=== PATIENT | male | born 1955 | race Two or more races ===

== ENCOUNTER → 2020-05-18 12:00 | Inpatient (IN) | payer OTHER ==
[2020-05-16] VITALS (16 sets, daily range): BP systolic 76–147; BP diastolic 43–69
--- NOTE | 2020-05-16 06:41 | Anethesia Preoperative Eval ---
Anesthesia Pre-op PMH/ROS General Date of Evaluation: May 16, 2020 Anesthesiologist: Bud ASA Score: ASA 3 Mallampati Score Class I : Soft palate, uvula, fauces, pillars visible Class II: Soft palate, uvula, fauces visible Class III: Soft palate, base of uvula visible Class IV: Only hard plate visible Mallampati Classification: Class IV Surgeon: Stanley Diagnosis: Right knee OA Surgical Procedure: Right TKR Anesthesia History: none Family History: no anesthesia problems Allergies: Coded Allergies: No Known Allergies (Unverified , 03/10/19) Medications: see eMAR Patient NPO?: Yes NPO Date: May 16, 2020 NPO Time: 00:00 Past Medical History Cardiovascular: Reports: HTN; Denies: CAD, [place], valve dz, arrhythmia, other Pulmonary: Reports: KAREEM - uses CPAP; Denies: asthma, COPD, other Gastrointestinal/Genitourinary: Reports: other - BPH; Denies: GERD, CRI, ESRD Neurologic/Psychiatric: Reports: depression/anxiety; Denies: dementia, CVA, TIA, other Endocrine: Denies: DM, hypothyroidism, steroids, other HEENT: Denies: cataract (L), cataract (R), glaucoma, [place] (L), [place] (R), other Hematology/Immune: Denies: anemia, DVT, bleeding disorder, other Musculoskeletal/Integumentary: Reports: OA; Denies: RA, DJD, DDD, edema, other Other: obesity PSxH Narrative: Left eye vitrtectomy, margo, appy, ex-lap, bilateral knee arthroscpies Anesthesia Pre-op Phys. Exam Physician Exam Last Vital Signs Date Time Temp Pulse Resp B/P (MAP) Pulse Ox O2 Delivery O2 Flow Rate FiO2 05/16/20 06:12 97.5 68 20 140/61 (87) 98 05/16/20 06:11 Room Air Constitutional: NAD Cardiovascular: RRR Respiratory: CTA Airway Exam Mallampati Score: Class III MO: limited Neck: Short, obese TMD: <FB ROM: limited Teeth: intact Anesthesia Pre-op A/P Labs see chart Studies Pre-op Studies: EKG - SB, CXR - No evidence of acute disease Risk Assessment & Plan Assessment: ASA III Plan: Right adductor nerve block, SAB, GA Status Change Before Surgery: No Pre-Antibiotics Drug: Ancef 2g Given Within 1 Hr of Incision: Yes Carrie Farrell MD May 16, 2020 06:41
--- NOTE | 2020-05-16 07:05 | Pre-Procedure Note/Attestation ---
Pre-Procedure Note/Attestation Complete Prior to Procedure Planned Procedure: right Procedure Narrative: Rt total knee arthroplasty Indications for Procedure Pre-Operative Diagnosis: rt knee arthritis Attestation I attest that I discussed the nature of the procedure; its benefits; risks and complications; and alternatives (and the risks and benefits of such alternatives ), prior to the procedure, with the patient (or the patient's legal claims service representative). I attest that, if there was a reasonable possibility of needing a blood transfusion, the patient (or the patient's legal claims service representative) was given the [facility] standardized written summary, pursuant to the [place] Blood Safety Act ([place] Health and Safety Code # 1645, as amended). I attest that I re-evaluated the patient just prior to the surgery and that there has been no change in the patient's H&P, except as documented below: NONE Slick Angel MD May 16, 2020 07:05
--- NOTE | 2020-05-16 09:42 | Brief Operative Note ---
Immediate Post Operative Note Operative Note Chief Complaint: rt knee pain Pre-op Diagnosis: rt knee arthritis Procedure: rt tka Post-op Diagnosis: same as pre-op Findings: consistent w/pre-op dx studies Surgeon: md dimitri English Language Arts Teacher: bonnie tang Anesthesiologist: md cris Anesthesia: general Specimen: yes Complications: none Condition: stable Fluids: ns Estimated Blood Loss: minimal Drains: none Implant(s) used?: Yes - Slick Salgado MD May 16, 2020 09:42
--- NOTE | 2020-05-16 09:59 | Immediate Post-Op Evaluation ---
Immediate Post-Op Evalulation Immediate Post-Op Evalulation Procedure: Right TKR Date of Evaluation: May 16, 2020 Time of Evaluation: 10:01 IV Fluids: 1.6L Blood Products: 0 Estimated Blood Loss: 250 Urinary Output: 50 Blood Pressure Systolic: 86 Blood Pressure Diastolic: 43 Pulse Rate: 70 Respiratory Rate: 16 O2 Sat by Pulse Oximetry: 100 Temperature (Fahrenheit): 97.4 Pain Score (1-10): 0 Nausea: No Vomiting: No Complications 0 Patient Status: awake, reacts, patent, none Hydration Status: adequate Drug: Ancef 2g Given Within 1 Hr of Incision: Yes Carrie Farrell MD May 16, 2020 09:59
--- NOTE | 2020-05-16 10:00 | 48 Hour Post Anesthesia Eval ---
Post Anesthesia Evaluation Procedure: Right TKR Date of Evaluation: May 16, 2020 Airway: patent Nausea: No Vomiting: No Hydration Status: adequate Cardiopulmonary Status: at baseline Mental Status/LOC: patient returned to baseline Post-Anesthesia Complications: 0 Follow-up care needed: N/A - further care as per primary team Carrie Farrell MD May 16, 2020 10:00
[2020-05-16] MEDS: Docusate 100mg cap ORAL SCH ×2 (13:15→17:28)
[2020-05-16] MEDS: D5 1/2NS w/KCl 20mEq 1,000 ML IV SCH (13:17)
[2020-05-16] MEDS: HYDROcodone/Acetamin 5/325 tab ORAL PRN ×2 (13:17→17:30)
--- NOTE | 2020-05-16 14:21 | Diagnostic Imaging Report ---
Indications: Postoperative Technique: Two views of the right knee Comparison: None Findings: Two postoperative views of the right knee demonstrate total knee arthroplasty, good anatomic alignment of the prosthesis. . There is postsurgical soft tissue air. Impression: Postoperative right knee, no unusual features.
[2020-05-16] MEDS: ceFAZolin sod 1 GM in D5W 55 ML IV SCH ×2 (14:26→22:05)
--- NOTE | 2020-05-16 14:45 | Operative Note - Dictated ---
DATE OF OPERATION: 05/16/2020 PREOPERATIVE DIAGNOSIS: Right knee end-stage arthritis. POSTOPERATIVE DIAGNOSIS: Right knee end-stage arthritis. PROCEDURE: Right total knee arthroplasty using Venus Triathlon System, size 5 femur, size 6 tibial plate, a 33 mm all-poly patella, and a 9 mm ultra cross-linked polyethylene tibial insert. SURGEON: Slick Angel MD. EXPERIMENTAL ROCKETSLED MECHANIC: Jenny Salmeron PA-C. ANESTHESIOLOGIST: Carrie Farrell MD. ANESTHESIA: General LMA anesthesia combined with regional block for postoperative pain management. ESTIMATED BLOOD LOSS: Less than 20 mL. COMPLICATIONS: None. BRIEF HISTORY: The patient is a pleasant 64-year-old gentleman, who has had end-stage arthritis. He has had varus deformity and loss of full extension by 5 degrees. After full discussion of risks and benefits of the surgery and after failure of nonoperative treatment, he opted for surgical treatment as described above. Risks of infection, bleeding, neurovascular complication, possibility of continued pain, possibility of loss of motion, possibility of infection, required antibiotics as well as resection arthroplasty, possibility of DVT, PEs and loss of motion and continued pain and other complications that may arise was discussed and understood and agreed. OPERATIVE PROCEDURE: The patient was brought to the operating room table and was placed supine. All pressure points were well padded. General LMA anesthesia was induced and regional block was performed. The right leg was prepped and draped in usual sterile fashion. Preop antibiotics were given and a time-out was performed. The right leg was then exsanguinated. Tourniquet was inflated to 275 mmHg. Standard anterior incision to the knee was undertaken and incision was taken through the subcutaneous tissue. Medial parapatellar arthrotomy was performed. The deep fibers of the MCL were released using osteotome. The patella was then everted and the knee was flexed. The fat pad was resected. ACL and PCL were resected. The intramedullary access into the femur was then obtained using a drill and a distal femoral cut in 5 degrees of valgus was applied. A 5-degree valgus distal femoral cut was performed without any complication. At this point, care was given to the measurements. The femur measured size 5. The cutting guide was placed in about 3 degrees external rotation and anterior, posterior, and chamfer cuts were performed without any complications. At this point, sizing was performed and size 5 femur appeared to fit well. There was no notching. The femur was lateralized slightly and peg holes were drilled. Care was then given to the tibia. Appropriate retractors were placed posteriorly, medially and laterally. The menisci were removed. The anterior tibial crest was marked to recreate anatomical axis. An extramedullary guide was placed. A posterior slope was recreated. Using a guide and a stylet, 9 mm was taken off the least involved side, which was the lateral side. The anatomical axis was recreated and cut was performed without any complications. Once this was performed, the flexion-extension gap was checked and appeared to be excellent and symmetrical. At this point, trialing of the tibial components were performed and size 6 appeared to be the right size was placed in slight external rotation and pinned and drilled and just the short stem was then punched. Once this was completed, the tibial trial and femoral trial along with a 9 mm trial poly insert were inserted. There was full extension, full flexion, excellent stability at 0, 30 degree, 45 degrees, and 90 degrees of flexion. At this point, care was given to the patella. The patella was everted. The thickness of patella was checked and appeared to be 24 mm. At this point, a freehand patella cut was performed and 30 mm patella was remaining. At this point, sizing was performed and 33 mm patella appeared to be the right size. This was translated slightly medially and the peg holes were drilled without any complications. At this point, trialing of the patella was performed along with trialing of the femur, tibia, and tibial insert and there was excellent range of motion, stability and patellofemoral tracking. At this point, all trial components were removed and wounds were thoroughly irrigated using copious amount of fluid. Simpulse irrigation was used. Cement was mixed and the bone was dried and the tibial component, femoral component, and patella components were all cemented in under compression without any complication. All excess cement was removed. Once this was completed, trialing with the tibial insert was performed and size 9 mm trial appeared to be the right size. Therefore, actual 9 mm ultra cross-linked poly insert was then locked in without any complication after and drying the knee and the tibial plate. Once this was completed, again the range of motion, patellofemoral tracking was checked and stability was checked and appeared to be excellent as described previously. The tourniquet was deflated. There was minimal bleeding that was coagulated. The extensor mechanism was closed using #1 Vicryl suture. Subcutaneous tissue was closed using 2-0 Vicryl suture. Skin was closed using 3-0 Monocryl suture. Sterile dressing was applied. All lap counts and instrument counts were correct. Slick Angel M.D. DR: JAVIER JOB#: [id number] CC: BARAK
[2020-05-16] MEDS: oxyCONTIN 10mg tab ORAL SCH (20:15)
--- NOTE | 2020-05-16 20:41 | General Progress Note ---
Assessment/Plan Assessment/Plan: sp right knee replacement htn post op care pain control restart olmesartan hctz PT per ortho dvt and ulcer prophylaxis check labs in am Subjective Allergies: Coded Allergies: No Known Allergies (Unverified , 03/10/19) Subjective co post op pain no chest pain or sob Objective Last 24 Hour Vital Signs Date Time Temp Pulse Resp B/P (MAP) Pulse Ox O2 Delivery O2 Flow Rate FiO2 05/16/20 16:00 97.4 83 18 123/62 (82) 92 05/16/20 14:15 97.7 81 18 124/64 (84) 95 05/16/20 13:15 97.5 86 20 129/66 (87) 94 05/16/20 12:15 97.8 75 18 111/59 (76) 92 05/16/20 11:45 97.5 80 20 110/59 (76) 92 05/16/20 11:15 97.6 73 18 102/61 (75) 92 05/16/20 11:05 97.9 75 22 113/58 100 Nasal Cannula 3 05/16/20 10:55 70 23 114/55 100 Nasal Cannula 3 05/16/20 10:40 73 20 111/53 100 Nasal Cannula 3 05/16/20 10:25 69 23 97/48 100 Simple Mask 6 05/16/20 10:15 71 24 98/48 100 Simple Mask 6 05/16/20 10:05 65 21 85/44 100 Simple Mask 6 05/16/20 10:00 67 23 87/45 100 Simple Mask 6 05/16/20 09:59 70 16 100 05/16/20 09:56 97.4 70 23 76/43 100 Simple Mask 6 05/16/20 06:12 97.5 68 20 140/61 (87) 98 05/16/20 06:11 Room Air Intake and Output 05/15/20 05/16/20 19:00 07:00 # Voids 1 Height (Feet): 5 Height (Inches): 7.00 Weight (Pounds): 240 General Appearance: WD/WN, no apparent distress Neck: supple Cardiovascular: normal rate Respiratory/Chest: lungs clear Abdomen: soft Edema: no edema noted Arm (L), no edema noted Arm (R), no edema noted Leg (L), no edema noted Leg (R), no edema noted Pedal (L), no edema noted Pedal (R), no edema noted Generalized Objective right nee dressing clean neurovascularintact Geoff Martinez MD May 16, 2020 20:41
[2020-05-17] VITALS: BP 120/57
[2020-05-17] MEDS: HYDROcodone/Acetamin 5/325 tab ORAL PRN ×2 (01:14→05:28)
[2020-05-17] MEDS: D5 1/2NS w/KCl 20mEq 1,000 ML IV SCH ×3 (01:50→20:19)
[2020-05-17 04:00] VITALS: BP 119/55
[2020-05-17 06:08] LABS: BASOPHILS % (AUTO) 0.4 % (0.0-2.0); HEMATOCRIT 35.5 % (42.0-52.0); HEMOGLOBIN 11.9 G/DL (14.2-18.0); LYMPHOCYTES % (AUTO) 6.3 % (20.0-45.0); MEAN CORPUSCULAR VOLUME 90 FL (80-99); MONOCYTES % (AUTO) 8.5 % (1.0-10.0); NEUTROPHILS % (AUTO) 84.8 % (45.0-75.0); PLATELET COUNT 185 K/UL (150-450); RED BLOOD COUNT 3.95 M/UL (4.70-6.10); RED CELL DISTRIBUTION WIDTH 11.9 % (11.6-14.8); WHITE BLOOD COUNT 11.8 K/UL (4.8-10.8)
[2020-05-17 06:33] LABS: ALANINE AMINOTRANSFERASE 30 U/L (12-78); ALBUMIN 3.5 G/DL (3.4-5.0); ALBUMIN/GLOBULIN RATIO 0.9 (1.0-2.7); ALKALINE PHOSPHATASE 39 U/L (46-116); ANION GAP 8 mmol/L (5-15); ASPARTATE AMINO TRANSFERASE 16 U/L (15-37); BILIRUBIN,TOTAL 0.5 MG/DL (0.2-1.0); BLOOD UREA NITROGEN 25 mg/dL (7-18); CALCIUM 8.5 MG/DL (8.5-10.1); CARBON DIOXIDE 29 MMOL/L (21-32); CHLORIDE 106 MMOL/L (98-107); CREATININE 1.5 MG/DL (0.55-1.30); POTASSIUM 4.8 MMOL/L (3.5-5.1); SODIUM 143 MMOL/L (136-145)
--- NOTE | 2020-05-17 07:59 | Orthopedic Progress Note ---
Orthopedic - Progress Note Subjective Symptoms: c/o post-op knee pain Objective Last 24 Hour Vital Signs Date Time Temp Pulse Resp B/P (MAP) Pulse Ox O2 Delivery O2 Flow Rate FiO2 05/17/20 04:00 97.5 66 17 119/55 (76) 93 05/17/20 00:00 97.7 63 14 120/57 (78) 93 05/16/20 21:00 Room Air 05/16/20 20:00 97.7 74 15 147/69 (95) 92 05/16/20 16:00 97.4 83 18 123/62 (82) 92 05/16/20 14:15 97.7 81 18 124/64 (84) 95 05/16/20 13:15 97.5 86 20 129/66 (87) 94 05/16/20 12:15 97.8 75 18 111/59 (76) 92 05/16/20 11:45 97.5 80 20 110/59 (76) 92 05/16/20 11:15 97.6 73 18 102/61 (75) 92 05/16/20 11:05 97.9 75 22 113/58 100 Nasal Cannula 3 05/16/20 10:55 70 23 114/55 100 Nasal Cannula 3 05/16/20 10:40 73 20 111/53 100 Nasal Cannula 3 05/16/20 10:25 69 23 97/48 100 Simple Mask 6 05/16/20 10:15 71 24 98/48 100 Simple Mask 6 05/16/20 10:05 65 21 85/44 100 Simple Mask 6 05/16/20 10:00 67 23 87/45 100 Simple Mask 6 05/16/20 09:59 70 16 100 05/16/20 09:56 97.4 70 23 76/43 100 Simple Mask 6 Laboratory Tests Test 05/17/20 04:40 White Blood Count 11.8 K/UL (4.8-10.8) H Red Blood Count 3.95 M/UL (4.70-6.10) L Hemoglobin 11.9 G/DL (14.2-18.0) L Hematocrit 35.5 % (42.0-52.0) L Mean Corpuscular Volume 90 FL (80-99) Mean Corpuscular Hemoglobin 30.1 PG (27.0-31.0) Mean Corpuscular Hemoglobin Concent 33.5 G/DL (32.0-36.0) Red Cell Distribution Width 11.9 % (11.6-14.8) Platelet Count 185 K/UL (150-450) Mean Platelet Volume 6.3 FL (6.5-10.1) L Neutrophils (%) (Auto) 84.8 % (45.0-75.0) H Lymphocytes (%) (Auto) 6.3 % (20.0-45.0) L Monocytes (%) (Auto) 8.5 % (1.0-10.0) Eosinophils (%) (Auto) 0.0 % (0.0-3.0) Basophils (%) (Auto) 0.4 % (0.0-2.0) Sodium Level 143 MMOL/L (136-145) Potassium Level 4.8 MMOL/L (3.5-5.1) Chloride Level 106 MMOL/L (98-107) Carbon Dioxide Level 29 MMOL/L (21-32) Anion Gap 8 mmol/L (5-15) Blood Urea Nitrogen 25 mg/dL (7-18) H Creatinine 1.5 MG/DL (0.55-1.30) H Estimat Glomerular Filtration Rate 47.0 mL/min (>60) Glucose Level 148 MG/DL (74-106) H Calcium Level 8.5 MG/DL (8.5-10.1) Total Bilirubin 0.5 MG/DL (0.2-1.0) Aspartate Amino Transf (AST/SGOT) 16 U/L (15-37) Alanine Aminotransferase (ALT/SGPT) 30 U/L (12-78) Alkaline Phosphatase 39 U/L (46-116) L Total Protein 7.2 G/DL (6.4-8.2) Albumin 3.5 G/DL (3.4-5.0) Globulin 3.7 g/dL Albumin/Globulin Ratio 0.9 (1.0-2.7) L Intake and Output 05/16/20 05/17/20 19:00 07:00 Intake Total 2300 ml 1225 ml Output Total 250 ml 550 ml Balance 2050 ml 675 ml Intake Oral 300 ml 400 ml IV Total 2000 ml 825 ml Output Urine Total 50 ml 550 ml Estimated Blood Loss 200 ml # Voids 2 Laboratory Tests Test 9/2/20 04:40 White Blood Count 11.8 K/UL (4.8-10.8) H Red Blood Count 3.95 M/UL (4.70-6.10) L Hemoglobin 11.9 G/DL (14.2-18.0) L Hematocrit 35.5 % (42.0-52.0) L Mean Corpuscular Volume 90 FL (80-99) Mean Corpuscular Hemoglobin 30.1 PG (27.0-31.0) Mean Corpuscular Hemoglobin Concent 33.5 G/DL (32.0-36.0) Red Cell Distribution Width 11.9 % (11.6-14.8) Platelet Count 185 K/UL (150-450) Mean Platelet Volume 6.3 FL (6.5-10.1) L Neutrophils (%) (Auto) 84.8 % (45.0-75.0) H Lymphocytes (%) (Auto) 6.3 % (20.0-45.0) L Monocytes (%) (Auto) 8.5 % (1.0-10.0) Eosinophils (%) (Auto) 0.0 % (0.0-3.0) Basophils (%) (Auto) 0.4 % (0.0-2.0) Sodium Level 143 MMOL/L (136-145) Potassium Level 4.8 MMOL/L (3.5-5.1) Chloride Level 106 MMOL/L (98-107) Carbon Dioxide Level 29 MMOL/L (21-32) Anion Gap 8 mmol/L (5-15) Blood Urea Nitrogen 25 mg/dL (7-18) H Creatinine 1.5 MG/DL (0.55-1.30) H Estimat Glomerular Filtration Rate 47.0 mL/min (>60) Glucose Level 148 MG/DL (74-106) H Calcium Level 8.5 MG/DL (8.5-10.1) Total Bilirubin 0.5 MG/DL (0.2-1.0) Aspartate Amino Transf (AST/SGOT) 16 U/L (15-37) Alanine Aminotransferase (ALT/SGPT) 30 U/L (12-78) Alkaline Phosphatase 39 U/L (46-116) L Total Protein 7.2 G/DL (6.4-8.2) Albumin 3.5 G/DL (3.4-5.0) Globulin 3.7 g/dL Albumin/Globulin Ratio 0.9 (1.0-2.7) L Wound: clean, dry, intact Drains: none Neuro Status: normal Vascular Status: normal Additional Comments Xray excellent Assessment Post-op Diagnosis POD 1 Procedure Performed Rt TKA Plan Plan: PT, pain management, discharge plan - likely home with services tomorrow Jenny Salmeron May 17, 2020 07:59
[2020-05-17 08:06] VITALS: BP 120/62
[2020-05-17] MEDS: oxyCONTIN 10mg tab ORAL SCH ×2 (08:20→20:19)
[2020-05-17] MEDS: Docusate 100mg cap ORAL SCH ×3 (08:21→17:07)
[2020-05-17] MEDS: celeBREX 200mg Cap **SURGERY PATIENTS ONLY ORAL SCH (08:21)
[2020-05-17] MEDS: OLMESARTAN HCTZ ORAL SCH (08:23)
[2020-05-17 12:00] VITALS: BP 116/53
[2020-05-17 16:00] VITALS: BP 122/53
[2020-05-17 20:00] VITALS: BP 142/60
--- NOTE | 2020-05-17 21:46 | General Progress Note ---
Assessment/Plan Assessment/Plan: sp right knee replacement htn sleep apnea renal insufficeeny post op care pain control restart olmesartan hctz PT per ortho cpap at [facility] iv vfluids dvt and ulcer prophylaxis check labs in am Subjective Allergies: Coded Allergies: No Known Allergies (Unverified , 03/10/19) Subjective co post op pain no chest pain or sob some hypoxia post op needed cpap today better Objective Last 24 Hour Vital Signs Date Time Temp Pulse Resp B/P (MAP) Pulse Ox O2 Delivery O2 Flow Rate FiO2 05/17/20 16:00 97.6 62 19 122/53 (76) 93 05/17/20 12:00 98.4 54 18 116/53 (74) 97 05/17/20 09:00 Nasal Cannula 2.0 05/17/20 08:50 98.5 05/17/20 08:06 98.5 67 18 120/62 (81) 93 05/17/20 04:00 97.5 66 17 119/55 (76) 93 05/17/20 00:00 97.7 63 14 120/57 (78) 93 Intake and Output 05/16/20 05/17/20 19:00 07:00 Intake Total 2300 ml 1225 ml Output Total 250 ml 550 ml Balance 2050 ml 675 ml Intake Oral 300 ml 400 ml IV Total 2000 ml 825 ml Output Urine Total 50 ml 550 ml Estimated Blood Loss 200 ml # Voids 2 Laboratory Tests 05/17/20 04:40: White Blood Count 11.8H, Red Blood Count 3.95L, Hemoglobin 11.9L, Hematocrit 35.5L, Mean Corpuscular Volume 90, Mean Corpuscular Hemoglobin 30.1, Mean Corpuscular Hemoglobin Concent 33.5, Red Cell Distribution Width 11.9, Platelet Count 185, Mean Platelet Volume 6.3L, Neutrophils (%) (Auto) 84.8H, Lymphocytes (%) (Auto) 6.3L, Monocytes (%) (Auto) 8.5, Eosinophils (%) (Auto) 0.0, Basophils (%) (Auto) 0.4, Sodium Level 143, Potassium Level 4.8, Chloride Level 106, Carbon Dioxide Level 29, Anion Gap 8, Blood Urea Nitrogen 25H, Creatinine 1.5H, Estimat Glomerular Filtration Rate 47.0, Glucose Level 148H, Calcium Level 8.5, Total Bilirubin 0.5, Aspartate Amino Transf (AST/SGOT) 16, Alanine Aminotransferase (ALT/SGPT) 30, Alkaline Phosphatase 39L, Total Protein 7.2, Albumin 3.5, Globulin 3.7, Albumin/Globulin Ratio 0.9L Height (Feet): 5 Height (Inches): 7.00 Weight (Pounds): 240 General Appearance: WD/WN, no apparent distress Neck: supple Cardiovascular: normal rate Respiratory/Chest: lungs clear Edema: no edema noted Arm (L), no edema noted Arm (R), no edema noted Leg (L), no edema noted Leg (R), no edema noted Pedal (L), no edema noted Pedal (R), no edema noted Generalized Objective right knee dressing clean neurovascularintact Geoff Martinez MD May 17, 2020 21:46
[~2020-05-18] VITALS: Ht 170.2 cm; Wt 109.4 kg
[2020-05-18] VITALS: BP 116/52
[2020-05-18 04:00] VITALS: BP 133/74
[2020-05-18] MEDS: HYDROcodone/Acetamin 5/325 tab ORAL PRN (05:09)
[2020-05-18 06:35] LABS: ANION GAP 6 mmol/L (5-15); BLOOD UREA NITROGEN 29 mg/dL (7-18); CALCIUM 8.8 MG/DL (8.5-10.1); CARBON DIOXIDE 30 MMOL/L (21-32); CHLORIDE 106 MMOL/L (98-107); CREATININE 1.5 MG/DL (0.55-1.30); POTASSIUM 5.1 MMOL/L (3.5-5.1); SODIUM 142 MMOL/L (136-145)
--- NOTE | 2020-05-18 07:34 | Orthopedic Progress Note ---
Orthopedic - Progress Note Subjective Symptoms: c/o post-op knee pain Objective Last 24 Hour Vital Signs Date Time Temp Pulse Resp B/P (MAP) Pulse Ox O2 Delivery O2 Flow Rate FiO2 05/18/20 05:39 98.0 05/18/20 04:00 98.0 72 18 133/74 (93) 90 05/18/20 00:00 98.3 71 18 116/52 (73) 92 05/17/20 23:28 97.6 05/17/20 21:00 Nasal Cannula 2.0 05/17/20 20:49 97.6 05/17/20 20:00 98.3 72 20 142/60 (87) 93 05/17/20 16:00 97.6 62 19 122/53 (76) 93 05/17/20 12:00 98.4 54 18 116/53 (74) 97 05/17/20 09:00 Nasal Cannula 2.0 05/17/20 08:06 98.5 67 18 120/62 (81) 93 Intake and Output 05/17/20 05/18/20 18:59 06:59 Intake Total 715 ml 300 ml Output Total 1160 ml 700 ml Balance -445 ml -400 ml Intake Oral 640 ml 300 ml IV Total 75 ml Output Urine Total 1160 ml 700 ml # Voids 3 3 Laboratory Tests Test 05/18/20 05:25 White Blood Count Pending Red Blood Count Pending Hemoglobin Pending Hematocrit Pending Mean Corpuscular Volume Pending Mean Corpuscular Hemoglobin Pending Mean Corpuscular Hemoglobin Concent Pending Red Cell Distribution Width Pending Platelet Count Pending Mean Platelet Volume Pending Neutrophils (%) (Auto) Pending Lymphocytes (%) (Auto) Pending Monocytes (%) (Auto) Pending Eosinophils (%) (Auto) Pending Basophils (%) (Auto) Pending Sodium Level 142 MMOL/L (136-145) Potassium Level 5.1 MMOL/L (3.5-5.1) Chloride Level 106 MMOL/L (98-107) Carbon Dioxide Level 30 MMOL/L (21-32) Anion Gap 6 mmol/L (5-15) Blood Urea Nitrogen 29 mg/dL (7-18) H Creatinine 1.5 MG/DL (0.55-1.30) H Estimat Glomerular Filtration Rate 47.0 mL/min (>60) Glucose Level 109 MG/DL (74-106) H Calcium Level 8.8 MG/DL (8.5-10.1) Wound: clean, dry Drains: none Neuro Status: normal Vascular Status: normal Assessment Procedure Performed rt tka Plan Plan: PT, pain management, discharge plan, discharge to home - recieve PT prior to discharge Slick Angel MD May 18, 2020 07:34
[2020-05-18 08:00] VITALS: BP 122/64
[2020-05-18 08:11] LABS: EOSINOPHILS % (AUTO) 1.3 % (0.0-3.0); HEMATOCRIT 34.5 % (42.0-52.0); HEMOGLOBIN 11.1 G/DL (14.2-18.0); LYMPHOCYTES % (AUTO) 15.6 % (20.0-45.0); MEAN CORPUSCULAR VOLUME 95 FL (80-99); NEUTROPHILS % (AUTO) 72.1 % (45.0-75.0); PLATELET COUNT 180 K/UL (150-450); RED BLOOD COUNT 3.65 M/UL (4.70-6.10); RED CELL DISTRIBUTION WIDTH 13.1 % (11.6-14.8); WHITE BLOOD COUNT 10.4 K/UL (4.8-10.8)
[2020-05-18] MEDS: Docusate 100mg cap ORAL SCH (08:55)
[2020-05-18] MEDS: celeBREX 200mg Cap **SURGERY PATIENTS ONLY ORAL SCH (08:56)
[2020-05-18] MEDS: oxyCONTIN 10mg tab ORAL SCH (08:57)
[2020-05-18] MEDS: OLMESARTAN HCTZ ORAL SCH (08:57)
--- NOTE | 2020-05-18 11:46 | Discharge Summary ---
Discharge Summary Hospital Course Date of Admission May 16, 2020 at 05:22 Date of Discharge 05/18/2020 Admitting Diagnosis right knee arthritis Reason for Hospitalization: s/p right total knee arthroplasty DAVE Shi is a 64 year old male who was admitted on May 16, 2020 at 05:22 for Unilateral Primary Osteoarthritis, Right Knee Consultations MD Juan Procedures rt total knee arthroplasty Hospital Course benign Discharge Condition Upon Discharge: improving, stable Discharge Vital Signs Last Vital Signs Date Time Temp Pulse Resp B/P (MAP) Pulse Ox O2 Delivery O2 Flow Rate FiO2 05/18/20 09:27 98.0 05/18/20 09:00 Nasal Cannula 2.0 05/18/20 08:00 78 24 122/64 (83) 98 Discharge Disposition Patient was discharged to home with home care/DME Jenny Salmeron May 18, 2020 11:46
[2020-05-18 12:00] VITALS: BP 124/67
[~2020-05-18 12:00] MED LIST: ASPIRIN EC325 MG ORAL; BENICAR HCT 401 EACH ORAL; Bacitracin 50000 Units Vial ONE; Bupivacaine w/Epi 0.5% 30ml Vial INJ ONE; DiphenhydrAMINE 50mg/ml Inj IVP PRN; HYDROcodone/Acetamin 7.5/325 tab ORAL PRN; HYDROmorphone 1mg/ml Carpuject SUBQ PRN; Hydromorphone 0.5mg/0.5ml inj IVP PRN; Ketorolac 30mg Inj IV PRN; LORazepam Inj 2mg/ml 1ml IV PRN; LR 1000ml 1,000 ML IVLG SCH; LR 1000ml ONE; Labetalol 5mg/ml 20ml vial IV PRN; Lidocaine 1% MPF 10mg/ml 5ml ONE; MELOXICAM15 MG PO; Meperidine 25mg/0.5ml Inj (FOR RIGORS ONLY) ONE; Metoclopramide 10mg/2ml Inj IVP PRN; Midazolam 2mg/2ml Inj IVP PRN; Midazolam 2mg/2ml Inj ONE; Milk of Magnesia 30ml Ud ORAL PRN; NEXIUM20 MG ORAL; NS Irrig 1000ml ONE; NS Irrig 2000ml IRRIG ONE; NeoSporin Gu Irrig 1ml Amp IRRIG ONE; PERCOCET1 TAB ORAL; Rocuronium Bromide 50mg/5ml Inj IV ONE; Sterile Water Irrig 1000ml IRRIG ONE; Tranexamic Acid 1,000 MG in NS 55 ML IVPB ONE; Tranexamic Acid 500 MG in NS 55 ML IVPB ONE; ceFAZolin 1gm IVPB IVPB ONE; celeBREX 200mg Cap **SURGERY PATIENTS ONLY ORAL ONE; fentaNYL 100 mcg/2 mL IV ONE; fentaNYL 100 mcg/2 mL IV PRN; oxyCONTIN 10mg tab ORAL ONE; oxyCONTIN 20mg tab ORAL ONE
== END | disposition home or self-care (01) | DRG 470 ==
LOC: SDSOVERFLO 05-16 05:22 → 3E 05-16 11:13
PROC: 0SRC0J9 Replacement of Right Knee Joint with Synthetic Substitute, Cemented, Open Approach (ICD-10-PCS; principal; 2020-05-16 07:00)
DX: M17.11 Unilateral primary osteoarthritis, right knee (principal); I10 Essential (primary) hypertension; G47.30 Sleep apnea, unspecified; N28.9 Disorder of kidney and ureter, unspecified
CPT/HCPCS: 36415; 80048; 80053; 85025; 86850; 86900; 86901; 87081; 94003; 94150; J2180; J2250; J2405; U0002